=== PATIENT | male | born 1945 | race Caucasian/White ===

== ENCOUNTER 2022-09-11 13:57 | Emergency (ER) | payer MEDICARE, SELFPAY ==
--- NOTE | ~2022-09-11 | XR_ITS ---
EXAMINATION:XR ankle LT min 3V, XR foot LT 2V VIEWS ACQUIRED: Frontal lateral and oblique left foot and ankle CLINICAL INFORMATION: Reason for Exam left posterior ankle pain COMPARISON: None available at the time of this dictation. FINDINGS: There is no evidence of acute fracture or dislocation. Intertarsal, tarsometatarsal, metatarsophalangeal and interphalangeal joints are intact. Surrounding soft tissues is normal. , Ankle mortise is preserved. Talar dome is intact. Tibial component is smooth. Medial and lateral malleoli are normal. XR/XR foot LT 2V IMPRESSION: * No radiographic evidence of acute fracture. * No dislocation.
--- NOTE | ~2022-09-11 | US_ITS ---
EXAMINATION: US left Achilles tendon. CLINICAL INFORMATION: Pain COMPARISON: None available at the time of this dictation. TECHNIQUE: High-frequency linear transducer ultrasound utilized, area of interest scanned, Achilles tendon FINDINGS: There is thickening of the Achilles tendon, there is interruption in its contour, heterogeneous area, highly suspicious for possible tendon tear. US/US extremity nonvascular IMPRESSION: High suspicion for possible Achilles tendon tear. MRI would be helpful for further better visualization to assess the degree of the tear and retraction.
--- NOTE | ~2022-09-11 | XR_ITS ---
EXAMINATION:XR ankle LT min 3V, XR foot LT 2V VIEWS ACQUIRED: Frontal lateral and oblique left foot and ankle CLINICAL INFORMATION: Reason for Exam left posterior ankle pain COMPARISON: None available at the time of this dictation. FINDINGS: There is no evidence of acute fracture or dislocation. Intertarsal, tarsometatarsal, metatarsophalangeal and interphalangeal joints are intact. Surrounding soft tissues is normal. , Ankle mortise is preserved. Talar dome is intact. Tibial component is smooth. Medial and lateral malleoli are normal. XR/XR ankle LT min 3V IMPRESSION: * No radiographic evidence of acute fracture. * No dislocation.
[2022-09-11 14:57] VITALS: BP 144/75; PULSE 75; RESP 16; TEMP 36.3; O2SAT 98; BMI 24.4
--- NOTE | 2022-09-11 15:01 | ED.GENADULT ---
HPI - General Adult General Chief complaint: Extremity Injury, Lower <MERVIN Chau - Last Filed: 09/24/22 09:39> Stated complaint: L torn achilles <MERVIN Chau - Last Filed: 09/24/22 09:39> Time Seen by Provider: 09/11/22 17:01 <MERVIN Chau - Last Filed: 09/24/22 09:39> Source: patient and family (patient's ) <MERVIN Peters - Last Filed: 09/11/22 17:38> Mode of arrival: ambulatory <MERVIN Peters - Last Filed: 09/11/22 17:38> Limitations: no limitations <MERVIN Peters Last Filed: 09/11/22 17:38> History of Present Illness HPI narrative: Patient is a 77 year old assigned male at with a history of a right achilles rupture presenting to the emergency department today with left achilles pain. Patient states that he was pushing a vehicle at home and felt a pop in his left achilles. Patient states that it feels like when he ruptured his right one. Patient denies any dizziness, lightheadedness, abdominal pain, nausea, vomiting, fever, chills, blurry vision, double vision, loss of vision, chest pain, difficulty breathing, shortness of breath, back pain, night sweats, pain with urination, increased urinary frequency, increased urinary urgency, blood in his urine or stool, syncope or a near syncopal episode, bowel incontinence, bladder incontinence, bowel retention, bladder retention, or any other complaints at this time. <MERVIN Peters - Last Filed: 09/11/22 17:38> Onset (ago): hour(s) <MERVIN Peters - Last Filed: 09/11/22 17:38> Location: left and lower extremity <MERVIN Peters Last Filed: 09/11/22 17:38> Radiation: non-radiation <MERVIN Peters - Last Filed: 09/11/22 17:38> Severity: mild <MERVIN Peters Last Filed: 09/11/22 17:38> Severity scale (1-10): 3 <MERVIN Peters Last Filed: 09/11/22 17:38> Pain Consistency: constant <MERVIN Peters Last Filed: 09/11/22 17:38> Relieving factors: none <MERVIN Peters - Last Filed: 09/11/22 17:38> Exacerbating factors: none <MERVIN Peters Last Filed: 09/11/22 17:38> Associated symptoms: denies other symptoms <MERVIN Peters - Last Filed: 09/11/22 17:38> Treatments prior to arrival: none <MERVIN Peters Last Filed: 09/11/22 17:38> Related Data Home medications: Home Medications Medication Instructions Recorded Confirmed No Known Home Meds 09/17/22 09/17/22 <MERVIN Chau - Last Filed: 09/24/22 09:39> Allergies/adverse reactions: Allergies Allergy/AdvReac Type Severity Reaction Status Date / Time No Known Allergies Allergy Verified 09/17/22 14:00 <MERVIN Chau - Last Filed: 09/24/22 09:39> Review of Systems Constitutional: Constitutional: Reports no additional constitutional complaints, Denies chills, Denies fever(s) and Denies night sweats <MERVIN Peters - Last Filed: 09/11/22 17:38> Eyes: Eyes: Reports no additional eye complaints, Denies blurry vision, Denies change in vision, Denies diplopia, Denies eye discharge, Denies loss of vision and Denies eye pain <MERVIN Peters Last Filed: 09/11/22 17:38> ENT: Denies dizziness <MERVIN Peters Last Filed: 09/11/22 17:38> Cardiovascular: Cardiovascular: Reports no additional cardiovascular complaints, Denies chest pain, Denies lightheadedness, Denies Loss of Consciousness and Denies dyspnea <MERVIN Peters - Last Filed: 09/11/22 17:38> Respiratory: Respiratory: Reports no additional respiratory complaints and Denies dyspnea <MERVIN Peters - Last Filed: 09/11/22 17:38> Gastrointestinal: Gastrointestinal: Reports no additional gastrointestinal complaints, Denies abdominal pain, Denies melena, Denies hematochezia, Denies change in bowel habits and Denies change in stool character <MERVIN Peters - Last Filed: 09/11/22 17:38> Genitourinary: Genitourinary: Reports no additional male genitourinary complaints, Denies hematuria, Denies oliguria, Denies difficulty urinating, Denies dysuria, Denies urinary frequency, Denies urinary hesitancy, Denies urinary incontinence and Denies urinary urgency <MERVIN Peters - Last Filed: 09/11/22 17:38> Musculoskeletal: Musculoskeletal: Reports no additional musculoskeletal complaints, Denies numbness and Denies tingling <MERVIN Peters - Last Filed: 09/11/22 17:38> Comments: left achilles pain <MERVIN Peters - Last Filed: 09/11/22 17:38> Neurologic: Denies dizziness, Denies loss of vision, Denies numbness and Denies tingling <MERVIN Peters - Last Filed: 09/11/22 17:38> Psychiatric: Psychiatric: Reports no additional psychiatric complaints <MERVIN Peters - Last Filed: 09/11/22 17:38> Endocrine: Endocrine: Reports no additional endocrine complaints <MERVIN Peters - Last Filed: 09/11/22 17:38> Hematologic/Lymphatic: Hematologic/Lymphatic: Reports no additional hematologic/lymphatic complaints <MERVIN Peters - Last Filed: 09/11/22 17:38> Allergic/Immunologic: Allergic/Immunologic: Reports no additional allergic/immunologic complaints <MERVIN Peters - Last Filed: 09/11/22 17:38> [facility] Past Medical History Attestation statement: The following information was validated with the patient. <MERVIN Peters - Last Filed: 09/11/22 17:38> Source: old records reviewed, obtained from family (patient's ) and nursing notes reviewed <MERVIN Peters - Last Filed: 09/11/22 17:38> Social History Social History: Social History (Updated 09/17/22 @ 14:01 by ERICK Morgan) Current occupational status: retired Current occupation: rt hand <MERVIN Chau - Last Filed: 09/24/22 09:39> Physical Exam ED Vital Signs: Vital Signs - 24 hr 09/11/22 14:57 Temperature 97.4 F Pulse Rate 75 Respiratory Rate 16 Blood Pressure 144/75 H Pulse Oximetry 98 Oxygen Delivery Method Room Air BMI result Body Mass Index 24.4 <MERVIN Chau - Last Filed: 09/24/22 09:39> Vital Signs - 24 hr 09/11/22 14:57 Temperature 97.4 F Pulse Rate 75 Respiratory Rate 16 Blood Pressure 144/75 H Pulse Oximetry 98 Oxygen Delivery Method Room Air BMI result Body Mass Index 24.4 <MERVIN Peters - Last Filed: 09/11/22 17:38> Const General: cooperative, no acute distress, alert and awake <MERVIN Peters - Last Filed: 09/11/22 17:38> Nutritional Appearance: well nourished <MERVIN Peters - Last Filed: 09/11/22 17:38> Orientation/consciousness: patient oriented x3 <MERVIN Peters - Last Filed: 09/11/22 17:38> Limitations: no limitations <MERVIN Peters - Last Filed: 09/11/22 17:38> HENAK Head: Yes normal to inspection and Yes atraumatic <MERVIN Peters - Last Filed: 09/11/22 17:38> Ears: hearing grossly normal bilaterally and external ears normal <MERVIN Peters - Last Filed: 09/11/22 17:38> General nose exam: Normal external nose present, no nasal discharge noted and no epistaxis <MERVIN Peters - Last Filed: 09/11/22 17:38> Face and sinus: Yes normal facial exam, No abrasion and No laceration <MERVIN Peters - Last Filed: 09/11/22 17:38> Mouth: Normal oral and palatal mucosa present, no drooling and no muffled voice <MERVIN Peters - Last Filed: 09/11/22 17:38> Eyes General: appearance normal, both eyes and all related structures <MERVIN Peters - Last Filed: 09/11/22 17:38> Periorbital: periorbital findings normal <MERVIN Peters - Last Filed: 09/11/22 17:38> Eyelids: Yes eyelids normal <MERVIN Peters - Last Filed: 09/11/22 17:38> Conjunctivae: conjunctivae normal <Fabiola Pritchett PA - Last Filed: 09/11/22 17:38> Pupils: Equal, round and reactive pupils present <Fabiola Pritchett PA - Last Filed: 09/11/22 17:38> EOM: EOMs intact bilaterally <Fabiola Pritchett PA - Last Filed: 09/11/22 17:38> Neck Neck: Yes normal visual inspection, Yes full ROM and Yes no lymphadenopathy <Faboila Pritchett PA - Last Filed: 09/11/22 17:38> Chest Chest palpation & inspection: normal inspection of the chest <Fabiola Pritchett PA - Last Filed: 09/11/22 17:38> Resp Effort & Inspection: normal respiratory effort and able to speak in complete sentences <Fabiola Pritchett PA - Last Filed: 09/11/22 17:38> GI Inspection: Yes normal to inspection <Fabiola Pritchett PA - Last Filed: 09/11/22 17:38> Neuro General: patient oriented x3 and moves all extremities <Fabiola Pritchett PA - Last Filed: 09/11/22 17:38> Cranial nerves: Yes Equal, round and reactive pupils present <Fabiola Pritchett PA - Last Filed: 09/11/22 17:38> Cognition (Neuro): normal cognition <Fabiola Pritchett PA - Last Filed: 09/11/22 17:38> Motor exam (neuro): 5/5 motor strength present throughout <Fabiola Pritchett PA - Last Filed: 09/11/22 17:38> Sensory Exam: Normal double simultaneous stimulation for sensation <Fabiola Pritchett PA - Last Filed: 09/11/22 17:38> Coordination: [id number] test normal <Fabiola Pritchett PA - Last Filed: 09/11/22 17:38> Extrem Other: positive Dill test on the left side <Fabiola Pritchett PA - Last Filed: 09/11/22 17:38> General: Yes capillary refill normal <Fabiola Pritchett PA - Last Filed: 09/11/22 17:38> Psych Appearance: grossly normal <Fabiola Pritchett PA - Last Filed: 09/11/22 17:38> Mental Status: mental status grossly normal <MERVIN Peters - Last Filed: 09/11/22 17:38> Affect: normal affect <MERVIN Peters - Last Filed: 09/11/22 17:38> Attitude: cooperative <MERVIN Peters - Last Filed: 09/11/22 17:38> Thought process: Normal thought process present <MERVIN Peters Last Filed: 09/11/22 17:38> Thought content: Normal thought content present <MERVIN Peters - Last Filed: 09/11/22 17:38> Insight: Good insight present (Psych) <MERVIN Peters - Last Filed: 09/11/22 17:38> Course Course Course Narrative: RME: 77 yold male presents to the ED for left achilles pain while trying to push an object. patient heard pop in left achilles. Patient dill test he has some movement, but is decreased in comparison to right lower extremity. Xrays and ultrasound ordered of extremity. <MERVIN Chau - Last Filed: 09/24/22 09:39> Procedures Orthopedic Splinting/Casting Injury #1: Side: left <MERVIN Peters - Last Filed: 09/11/22 17:38> Lower Extremity Injury Location: lower leg <MERVIN Peters Last Filed: 09/11/22 17:38> Lower Extremity Immobilizer: posterior splint <MERVIN Peters - Last Filed: 09/11/22 17:38> Medical Decision Making Medical Decision Making MDM Narrative: Patient is a 77 year old assigned male at with a history of right Achilles tendon rupture presenting to the emergency department today with left Achilles pain. Patient's physical exam showed a positive left sided Dill test, consistent with a left Achilles injury. Patient's left ankle and foot x-rays showed no acute process. Patient's left extremity ultrasound showed high suspicion of Achilles tendon tear. I explained my physical exam findings as well as all test results to the patient and the patient's . I answered all questions asked by the patient and the patient's . Patient's left Achilles was placed in a posterior short leg splint with the left foot in plantar flexion. I stressed the importance of the patient taking his medication as prescribed. I stressed the importance of the patient following up with his primary care provider and an orthopedic provider. I stressed the importance of the patient returning to the emergency department immediately if his symptoms were to worsen or if he were to develop any dizziness, shortness of breath, difficulty breathing, chest pain, blurry vision, loss of vision, nausea, vomiting, abdominal pain, fever, chills, back pain, or any other complaints. Patient and the patient's verbalized agreement and understanding with this treatment plan and discharge. <MERVIN Peters - Last Filed: 09/11/22 17:38> Differential Diagnosis Differential Diagnoses: The differential diagnosis associated with the presentation includes <MERVIN Peters Last Filed: 09/11/22 17:38> Achilles rupture <MERVIN Peters Last Filed: 09/11/22 17:38> Consult Healthcare Provider Management of the patient was discussed with: Sign Maintenance (spoke to the orthopedic provider senior solutions engineer who recommended splint and f/u outpatient) <MERVIN Peters Last Filed: 09/11/22 17:38> Radiology Impression Discussion of test interpretation with radiology: I have reviewed the radiologist's reading. <MERVIN Peters Last Filed: 09/11/22 17:38> Radiologist Impression: My interpretation is in agreement with the radiologist's impression of this imaging study. EXAMINATION:XR ankle LT min 3V, XR foot LT 2V VIEWS ACQUIRED: Frontal lateral and oblique left foot and ankle CLINICAL INFORMATION: Reason for Exam left posterior ankle pain COMPARISON: None available at the time of this dictation. FINDINGS:? There is no evidence of acute fracture or dislocation. Intertarsal, tarsometatarsal, metatarsophalangeal and interphalangeal joints are intact. Surrounding soft tissues is normal. , Ankle mortise is preserved. Talar dome is intact. Tibial component is smooth. Medial and lateral malleoli are normal. XR/XR foot LT 2V IMPRESSION: ? *? No radiographic evidence of acute fracture. ? *? No dislocation. Dictated By: Clifford Allen MD Signed By: Electronically signed by Clifford Allen MD 09/11/22 1633 EXAMINATION: US left Achilles tendon. CLINICAL INFORMATION: Pain COMPARISON: None available at the time of this dictation. TECHNIQUE: High-frequency linear transducer ultrasound utilized, area of interest scanned, Achilles tendon FINDINGS: There is thickening of the Achilles tendon, there is interruption in its contour, heterogeneous area, highly suspicious for possible tendon tear. US/US extremity nonvascular IMPRESSION: High suspicion for possible Achilles tendon tear. ? MRI would be helpful for further better visualization to assess the degree of the tear and retraction. Dictated By: Clifford Allen MD Signed By: Electronically signed by Clifford Allen MD 09/11/22 1631 <MERVIN Peters - Last Filed: 09/11/22 17:38> Independent Historian Clinical information obtained from an independent historian. History obtained from or confirmed by: Spouse <MERVIN Peters - Last Filed: 09/11/22 17:38> Discharge Plan Discharge Clinical Impression: Achilles rupture, left <MERVIN Chau - Last Filed: 09/24/22 09:39> Patient Disposition: Home, Self-Care <MERVIN Chau Last Filed: 09/24/22 09:39> Instructions: Achilles Tendon Rupture (ED) <MERVIN Chau - Last Filed: 09/24/22 09:39> Additional Instructions: Follow up with your primary care provider and an orthopedic provider. Return to the emergency department immediately if your symptoms worsen or if you develop any dizziness, shortness of breath, difficulty breathing, chest pain, blurry vision, loss of vision, nausea, vomiting, abdominal pain, fever, chills, back pain, or any other complaints. <MERVIN Chau - Last Filed: 09/24/22 09:39> Prescriptions: No Action No Known Home Meds <MERVIN Chau - Last Filed: 09/24/22 09:39> Referrals: [facility] [Provider Group] (Call to establish and follow up with an orthopedic provider. ) Shira Carias MD [Primary Care Provider] - <MERVIN Chau - Last Filed: 09/24/22 09:39> Interventions: ED Discharge Assessment Last Done: 09/11/22 18:17 <MERVIN Chau - Last Filed: 09/24/22 09:39> Discharge Date/Time: 09/11/22 18:18 <MERVIN Chau - Last Filed: 09/24/22 09:39> Print Language: Macanese <MERVIN Chau - Last Filed: 09/24/22 09:39>
== END 2022-09-11 18:18 | disposition home or self-care (01) ==
PROVIDERS: Emergency Provider Emergency Medicine Emergency Medical Services; PCP Internal Medicine
DX: S86.012A Strain of left Achilles tendon, initial encounter (principal); M25.572 Pain in left ankle and joints of left foot; X50.9XXA Other and unspecified overexertion or strenuous movements or postures, initial encounter; Y93.9 Activity, unspecified; Y92.9 Unspecified place or not applicable; Y99.9 Unspecified external cause status
CPT/HCPCS: 29515; 73610; 73620; 76882; 99282; 99284

== ENCOUNTER → 2022-09-17 13:48 | Outpatient (BNVA) | payer MEDICARE, SELFPAY | PROVIDERS: PCP Internal Medicine; Visit Provider Physician Assistant | DX: S86.012A Strain of left Achilles tendon, initial encounter (principal) | CPT/HCPCS: 99202 ==

== ENCOUNTER → 2022-10-26 08:58 | Outpatient (BNVA) | payer MEDICARE, SELFPAY | PROVIDERS: PCP Internal Medicine; Visit Provider Physician Assistant | DX: S86.012A Strain of left Achilles tendon, initial encounter (principal) | CPT/HCPCS: 99212 ==

== ENCOUNTER 2022-11-27 10:00 | Outpatient (RCR) | payer MEDICARE, SELFPAY ==
--- NOTE | 2022-10-01 15:03 | MHC.PT.EP ---
[facility] [place] Office [place] Office [place] [facility] [address] Christos Snell [address] [phone] F: [phone] F: [phone] F: [phone] F: [phone] Physical Therapy Plan of Care Date of Evaluation: Date of Surgery: Diagnosis: strain of left achilles tendon gentle rom, non op treatment achilles rupture, left Assessment: 77 y/o male referred to PT with strain of left achilles. Sustained injury on 09/11/22 while he was pushing his truck. As he was pushing, he heard a pop in achilles and fell, unable to weight through the leg. He went to ED and imaging was done. He was placed in a splint, provided crutches and NWB for ~ 1 week. He then went to ortho and has been given tall CAM boot with wedges with progression of decreasing heel wedges every 1-2 weeks and WBAT. Currently reports pain and difficulty with walking, ascend/descending stairs, bathing, fishing, and ear nose throat surgeon. Examination shows decreased L ankle AROM, decreased L toe mobility, edema, decreased hip and ankle strength (ankle MMT not formally tested), and impaired gait pattern. Recommend PT 2x/week for 8 weeks to address impairments, implement HEP, and optimize functional mobility. Frequency and Duration: The patient will be seen 2x/week for 12 weeks Short Term Goals: 6 weeks Compliant with HEP Demonstrate FWB in CAM boot with WNL gait mechanics Demonstrate increased L hip strength by 1/2 MMT for improved lumbopelvic stability Demonstrate increased L ankle DF AROM to 5 deg for improved foot clearance during gait in 4 weeks. Engineer Steam Goals: 12 weeks I with HEP and self management of sx Pt will demonstrate reciprocal stair negotiation with railings with pain < 3/10 Pt will demonstrate WNL gait mechanics in sneaker Pt will demonstrate L ankle strength at least 4/5 in 12-15 Treatment Plan: Modalities to reduce pain, spasms and effusion. Manual therapy to restore motion and function. Therapeutic exercise to improve strength and flexibility. Neuromuscular re-education for posture and balance. Therapeutic activities to return to functional activities of daily living. Electronically signed by: Janessa Canales PT Please sign and return to therapist. Thank you for your referral.
--- NOTE | 2022-12-28 14:40 | MHC.PT.DC ---
[facility] [place] Office [place] Office [place] Office [address] Christos Snell 140 [facility] [phone] F: [phone] F: [phone] F: [phone] F: [phone] Physical Therapy Discharge Report Diagnosis: strain of left achilles tendon gentle rom, non op treatment achilles rupture, left Date of Surgery: Date of Evaluation: 10/01/22 Date of Discharge: 12/28/22 Treatments to Date: 11 Cancellations to Date: 2 No Shows to Date: 0 Discharge Status: Improved Function Independent with HEP Discharge Summary: Pt did not f/u with final visits however at time of last visit, he had made progress with improved balance and strength as well as I with HEP. Electronically signed by: Janessa Canales PT Please sign and return to therapist. Thank you for your referral.
== END 2022-12-28 14:41 | disposition home or self-care (01) ==
LOC: HO.PTCHIC 10:00
PROVIDERS: PCP Internal Medicine; Visit Provider Physician Assistant
DX: S83.012D Lateral subluxation of left patella, subsequent encounter (principal)
CPT/HCPCS: 97110; 97112; 97162; 97530

== ENCOUNTER 2023-12-30 08:08 | Day surgery (SDC) | payer MEDICARE, SELFPAY ==
[2023-12-25 09:41] VITALS: BMI 26.3
--- NOTE | 2023-12-26 14:43 | P.CONAN_ITS ---
Documented by User: Jacklyn Armstrong NP 12/27/23 09:08 HPI - Anesthesia Eval Consult details Narrative: 78yo M for Right Cataract Extraction IOL Insertion No previous cataract on record [facility] Past Medical History Medical History Alcohol dependence Onychomycosis Rheumatoid arthritis Diverticulosis Hearing loss Surgical History Surgical History H/O colonoscopy Social History Social History Are you a primary field care advocate to a significant other at home: No Do you presently have visiting nurse or other home services: No Patient Tobacco Use Status: Former Tobacco user Quit Date: 1995 Tobacco use type: Cigarette Have you been hit, kicked, punched, or otherwise hurt by someone within the past year? If so, by whom?: No Are you DNR?: No Advance Directives: No Advance Directives Information Provided: Yes Advance Directives on File: No Recently lost weight without trying: No Eating poorly because of decreased appetite: No Nutrition Risks: Surgical patient >75years Poor oral hygiene: No Current occupational status: retired Current occupation: rt hand Meds Allergies Allergy/AdvReac Type Severity Reaction Status Date / Time shellfish derived Allergy Intermediate Abdominal Verified 12/25/23 09:48 Pain Home Medications ?Medication ?Instructions ?Recorded ?Confirmed ?Last Taken ?Type multivitamin 1 tab PO DAILY 12/25/23 12/25/23 Unknown History Exam Height,Weight and Vital Signs: Height 5 ft 9.75 in Weight 82.554 kg Assessment and Plan Assessment Anesthesia Assessment: Chart Reviewed Documented by User: Bi Nolan MD 12/30/23 10:01 [facility] Past Medical History Medical History Alcohol dependence Onychomycosis Rheumatoid arthritis Diverticulosis Hearing loss Family History Family history of problems with anesthesia: No Surgical History Surgical History H/O colonoscopy History of Problems with Anesthesia: No Social History Social History Are you a primary field care advocate to a significant other at home: No Do you presently have visiting nurse or other home services: No Patient Tobacco Use Status: Former Tobacco user Quit Date: 1995 Tobacco use type: Cigarette Have you been hit, kicked, punched, or otherwise hurt by someone within the past year? If so, by whom?: No Are you DNR?: No Advance Directives: No Advance Directives Information Provided: Yes Advance Directives on File: No Recently lost weight without trying: No Eating poorly because of decreased appetite: No Nutrition Risks: Surgical patient >75years Poor oral hygiene: No Current occupational status: retired Current occupation: rt hand Meds Allergies Allergy/AdvReac Type Severity Reaction Status Date / Time shellfish derived Allergy Intermediate Abdominal Verified 12/25/23 09:48 Pain Home Medications ?Medication ?Instructions ?Recorded ?Confirmed ?Last Taken ?Type multivitamin 1 tab PO DAILY 12/25/23 12/25/23 Unknown History Exam Airway Mallampati Class: II TM Dist: >3cm Neck ROM: Full Loose/Missing/Broken Teeth: No Heart: rrr Lungs: cta Assessment and Plan Assessment Anesthesia Assessment: Anesthesia Plan Discussed Final Anesthetic Review Family History of Problems with Anesthesia: No History of Problems with Anesthesia: No NPO: Yes ASA Class: II Final Preanesthetic Review: No Changes in Pt Med Stat, Meds/Allgs Chart Reviewed, Consent Obtained/Reviewed and Anes Risks/Benef Reviewed Patient Risk: Low Procedure Risk: Low Anesthetic Plan Anesthetic Plan: MAC: Disposition: Standard PACU
[2023-12-30 09:34] VITALS: BP 137/56; PULSE 55; RESP 16; TEMP 36.2; O2SAT 100
[2023-12-30] MEDS: Tetracaine HCl/PF 0.5% Oph Sol 4 ML DROPS 1 DROP EYE-RIGHT (09:44)
[2023-12-30] MEDS: Cyclopentolate 1 % Ophth Sol 2 ML DRPBTL 1 DROP EYE-RIGHT ×3 (09:45→09:50)
[2023-12-30] MEDS: Tropicamide 1 % Ophth Sol 3 ML BTL 1 DROP EYE-RIGHT ×3 (09:46→09:51)
[2023-12-30] MEDS: Ketorolac Tromethamine 0.5% Op 10 ML DROPS 1 DROP EYE-RIGHT ×3 (09:46→09:51)
[2023-12-30] MEDS: Phenylephrine HCL 2.5% Oph SoL 2 ML BOTTLE 1 DROP EYE-RIGHT ×3 (09:47→09:52)
--- NOTE | 2023-12-30 10:29 | MHC.SHP ---
Pre-Procedural Eval Section A - 24 Hr Update-Section A only Date of Service: 12/30/23 The patient is an INPATIENT: No Changes since office visit: No Cold of Flu in the past 2 weeks, No New Medical Problems, No Changes in Medication and No Patient answered all questions The patient has been examined within 24 hours of the surgical procedure. The History & Physical has been completed within 30 days and I have reviewed it.: Yes Section B - Complete if H&P > 30 days Chief Complaint: Age-related nuclear cataract, right eye Allergies: Allergies Allergy/AdvReac Type Severity Reaction Status Date / Time shellfish derived Allergy Intermediate Abdominal Verified 12/25/23 09:48 Pain Plan Diagnosis/Plan: Unchanged I have reviewed the history and physical and performed a pertinent physical examination on my patient. No changes have occurred unless specified. Time Spent With Patient Time: Total time managing care of this patient today ____ minutes.
--- NOTE | 2023-12-30 10:30 | P.PCNO_ITS ---
Ophthalmology Procedure Procedure Date of Service: 12/30/23 Ophthalmology Viscoelastic: Healon Duet Dual Pack Pro Ophthalmology Lenses: IOL Acrysof MP - MA60AC (21.5) Procedure Notes: PREOPERATIVE DIAGNOSIS: Decreased visual acuity right eye secondary to cataract POSTOPERATIVE DIAGNOSIS: Same PROCEDURE: Right cataract extraction with intraocular lens insertion SURGEON: Jhonatan Mederos M.D. ANESTHESIA: Topical/MAC ESTIMATED BLOOD LOSS: None COMPLICATIONS: None After obtaining informed consent, the patient was brought to the operating room suite and placed in the supine position. After adequate sedation per anesthesia, topical drops of Tetracaine were given to the right eye. The eye was then prepped and draped in the usual sterile fashion. The operating room microscope was then positioned over the operative eye and a lid speculum placed. A paracentesis was created. Viscoelastic was then instilled into the anterior chamber. A three plane incision was then created temporally, utilizing a 2.85 mm keratome. Capsulotomy forceps were then utilized to create a circular tear capsulotomy. Hydrodissection and hydrodelineation were carried out until adequate mobilization of the nucleus occurred. Phacoemulsification was then utilized to remove the dense central nu cleus followed by removal of the cortical material utilizing the automated aspiration irrigation unit. Viscoelastic was instilled into the posterior capsular bag followed by placement of a posterior chamber intraocular lens without difficulty. The residual Viscoelastic was then removed utilizing the automated IA machine. The wound was checked and found to be watertight. The patient tolerated the procedure well and the lid speculum was removed. Intracameral injection of Vigamox 0.1 mL followed by a subtenon injection of Kenalog-40 0.2 mL were administered. The patient will be seen in the a.m.
[2023-12-30 10:57] VITALS: BP 123/61; PULSE 54; RESP 12; TEMP 36.4; O2SAT 96
[2023-12-30 11:16] VITALS: BP 138/61; PULSE 58; RESP 18; TEMP 36.4; O2SAT 97
== END 2023-12-30 11:20 | disposition home or self-care (01) ==
PROVIDERS: PCP Internal Medicine; Visit Provider Ophthalmology
PROC: (CPT 66985; principal; 2023-12-30 09:40)
DX: H25.11 Age-related nuclear cataract, right eye (principal); H52.4 Presbyopia; H17.812 Minor opacity of cornea, left eye; H43.22 Crystalline deposits in vitreous body, left eye; H43.391 Other vitreous opacities, right eye; H18.413 Arcus senilis, bilateral; M06.9 Rheumatoid arthritis, unspecified; H91.90 Unspecified hearing loss, unspecified ear; Z79.899 Other long term (current) drug therapy; Z87.891 Personal history of nicotine dependence
CPT/HCPCS: 66984; J2250; J3010; J3301; V2630

== ENCOUNTER 2024-01-13 10:43 | Day surgery (SDC) | payer MEDICARE, SELFPAY ==
[2023-12-25 09:45] VITALS: BMI 26.3
--- NOTE | 2024-01-10 09:42 | HO.ANESPROP2 ---
Documented by User: Jacklyn Armstrong NP 01/10/24 09:42 HPI - Anesthesia Eval Consult details Narrative: 78yo M for Left Cataract Extraction IOL Insertion PCP cleared Right eye 12/30/23: Fent 50, Midaz 1 PMFSH Past Medical History Medical History Alcohol dependence Onychomycosis Rheumatoid arthritis Diverticulosis Hearing loss Family History Family history of problems with anesthesia: No Surgical History Surgical History H/O colonoscopy History of Problems with Anesthesia: No Social History Social History Are you a primary associate director career services to a significant other at home: No Do you presently have visiting nurse or other home services: No Patient Tobacco Use Status: Former Tobacco user Quit Date: 1995 Tobacco use type: Cigarette Use of substances other than those prescribed or required for medical reasons: No Have you been hit, kicked, punched, or otherwise hurt by someone within the past year? If so, by whom?: No Are you DNR?: No Advance Directives: No Advance Directives Information Provided: Yes Advance Directives on File: No Recently lost weight without trying: No Eating poorly because of decreased appetite: No Nutrition Risks: Surgical patient >75years Poor oral hygiene: No Current occupational status: retired Current occupation: rt hand Meds Allergies Allergy/AdvReac Type Severity Reaction Status Date / Time shellfish derived Allergy Intermediate Abdominal Verified 01/13/24 10:51 Pain Home Medications ?Medication ?Instructions ?Recorded ?Confirmed ?Last Taken ?Type multivitamin 1 tab PO DAILY 12/25/23 01/13/24 Unknown History Exam Height,Weight and Vital Signs: Height 5 ft 9.75 in Weight 82.554 kg Assessment and Plan Assessment Anesthesia Assessment: Chart Reviewed Final Anesthetic Review Family History of Problems with Anesthesia: No History of Problems with Anesthesia: No Documented by User: Sanjana Ingram MD 01/13/24 10:59 PMFSH Past Medical History Medical History Alcohol dependence Onychomycosis Rheumatoid arthritis Diverticulosis Hearing loss Surgical History Surgical History H/O colonoscopy Social History Social History Are you a primary associate director career services to a significant other at home: No Do you presently have visiting nurse or other home services: No Patient Tobacco Use Status: Former Tobacco user Quit Date: 1995 Tobacco use type: Cigarette Use of substances other than those prescribed or required for medical reasons: No Have you been hit, kicked, punched, or otherwise hurt by someone within the past year? If so, by whom?: No Are you DNR?: No Advance Directives: No Advance Directives Information Provided: Yes Advance Directives on File: No Recently lost weight without trying: No Eating poorly because of decreased appetite: No Nutrition Risks: Surgical patient >75years Poor oral hygiene: No Current occupational status: retired Current occupation: rt hand Meds Allergies Allergy/AdvReac Type Severity Reaction Status Date / Time shellfish derived Allergy Intermediate Abdominal Verified 01/13/24 10:51 Pain Home Medications ?Medication ?Instructions ?Recorded ?Confirmed ?Last Taken ?Type multivitamin 1 tab PO DAILY 12/25/23 01/13/24 Unknown History Exam Airway Mallampati Class: II TM Dist: >3cm Neck ROM: Full Heart: rrr Lungs: cta Assessment and Plan Assessment Anesthesia Assessment: Anesthesia Plan Discussed Final Anesthetic Review NPO: Yes ASA Class: II Final Preanesthetic Review: No Changes in Pt Med Stat, Meds/Allgs Chart Reviewed and Consent Obtained/Reviewed Patient Risk: Low Procedure Risk: Low Anesthetic Plan Anesthetic Plan: MAC: Disposition: Standard PACU
[2024-01-13 10:53] VITALS: BP 162/79; PULSE 56; RESP 16; TEMP 36; O2SAT 100
[2024-01-13] MEDS: Tetracaine HCl/PF 0.5% Oph Sol 4 ML DROPS 1 DROP EYE-LEFT (10:57)
[2024-01-13] MEDS: Cyclopentolate 1 % Ophth Sol 2 ML DRPBTL 1 DROP EYE-LEFT ×3 (11:03→11:13)
[2024-01-13] MEDS: Tropicamide 1 % Ophth Sol 3 ML BTL 1 DROP EYE-LEFT ×3 (11:03→11:14)
[2024-01-13] MEDS: Ketorolac Tromethamine 0.5% Op 10 ML DROPS 1 DROP EYE-LEFT ×3 (11:04→11:16)
[2024-01-13] MEDS: Phenylephrine HCL 2.5% Oph SoL 2 ML BOTTLE 1 DROP EYE-LEFT ×3 (11:06→11:17)
[2024-01-13] MEDS: Lactated Ringers 500 ML 50 ML IV (11:18)
--- NOTE | 2024-01-13 12:19 | MHC.SHP ---
Pre-Procedural Eval Section A - 24 Hr Update-Section A only Date of Service: 01/13/24 The patient is an INPATIENT: No Changes since office visit: No Cold of Flu in the past 2 weeks, No New Medical Problems, No Changes in Medication and No Patient answered all questions The patient has been examined within 24 hours of the surgical procedure. The History & Physical has been completed within 30 days and I have reviewed it.: Yes Section B - Complete if H&P > 30 days Chief Complaint: Age-related nuclear cataract, left eye Allergies: Allergies Allergy/AdvReac Type Severity Reaction Status Date / Time shellfish derived Allergy Intermediate Abdominal Verified 01/13/24 10:51 Pain Plan Diagnosis/Plan: Unchanged I have reviewed the history and physical and performed a pertinent physical examination on my patient. No changes have occurred unless specified. Time Spent With Patient Time: Total time managing care of this patient today ____ minutes.
--- NOTE | 2024-01-13 12:20 | HO.PNOPHT ---
Ophthalmology Procedure Procedure Date of Service: 01/13/24 Ophthalmology Viscoelastic: Healon Duet Dual Pack Pro Ophthalmology Lenses: IOL Acrysof MP - MA60AC (19.5) Procedure Notes: PREOPERATIVE DIAGNOSIS: Decreased visual acuity left eye secondary to cataract POSTOPERATIVE DIAGNOSIS: Same PROCEDURE: Left cataract extraction with intraocular lens insertion SURGEON: Jhonatan Mederos M.D. ANESTHESIA: Topical/MAC ESTIMATED BLOOD LOSS: None COMPLICATIONS: None After obtaining informed consent, the patient was brought to the operation room suite and placed in the supine position. After adequate sedation per anesthesia, topical drops of Tetracaine were given to the left eye. The eye was then prepped and draped in the usual sterile fashion. The operating room microscope was then positioned over the operative eye and a lid speculum placed. A paracentesis was created. Viscoelastic was then instilled into the anterior chamber. A three plane incision was then created temporally, utilizing a 2.85 mm keratome. Capsulotomy forceps were then utilized to create a circular tear capsulotomy. Hydrodissection and hydrodelineation were carried out until adequate mobilization of the nucleus occurred. Phacoemulsification was then utilized to remove the dense central nucleus followed by removal of the cortical material utilizing the automated aspiration irrigation unit. Viscoat elastic was instilled into the posterior capsular bag followed by placement of a posterior chamber intraocular lens without difficulty. The residual Viscoat elastic was then removed utilizing the automated IA machine. The wound was check and found to be watertight. The patient tolerated the procedure well and the lid speculum was removed. Intracameral injection of Vigamox 0.1 mL followed by a subtenon injection of Kenalog-40 0.2 mL were administered. The patient will be seen in the a.m.
[2024-01-13 12:51] VITALS: BP 136/48; PULSE 55; RESP 18; TEMP 36.4; O2SAT 99
== END 2024-01-13 12:57 | disposition home or self-care (01) ==
PROVIDERS: PCP Internal Medicine; Visit Provider Ophthalmology
PROC: (CPT 66985; principal; 2024-01-13 08:20)
DX: H25.12 Age-related nuclear cataract, left eye (principal); H52.4 Presbyopia; H17.812 Minor opacity of cornea, left eye; H18.413 Arcus senilis, bilateral; H43.22 Crystalline deposits in vitreous body, left eye; M06.9 Rheumatoid arthritis, unspecified; Z87.891 Personal history of nicotine dependence
CPT/HCPCS: 66984; J2250; J3010; J3301; V2630